=== PATIENT | female | born 1985 | race African-American/Black ===

== ENCOUNTER 2020-11-25 09:37 | Emergency (ER) | payer MEDICAID ==
[~2020-11-25] VITALS: Ht 162.6 cm; Wt 49.9 kg
[~2020-11-25 09:37] MED LIST: PENICILLIN V P500 MG PO
--- NOTE | 2020-11-25 09:45 | NUR ---
ED Nurse Note: pt. is not present during triage
--- NOTE | 2020-11-25 10:08 | NUR ---
ED Nurse Note: unable to do VA test on the patient because patient's eye is hypersensitive to light. pt. can barely open her eyes
--- NOTE | 2020-11-25 10:15 | NUR ---
ED Nurse Note: Pt ambulated to ED from home d/t bilateral eye swelling, irritation and watery eyes and blurry vision that has been going on for week now. Pt is AOx4, calm and cooperative to care, VSS, on RA, afebrile on triage. Pt was placed on bed.
[2020-11-25 10:17] VITALS: BP 124/74
[2020-11-25] MEDS ORDERED: OCUFLOX5 ML BOTH EYES (10:21)
[2020-11-25] MEDS ORDERED: HYDROCODON-ACE1 EA15 ORAL (10:21)
[2020-11-25] MEDS: HYDROcodone/Acetamin 5/325 tab ORAL ONE (10:28)
[2020-11-25 10:29] VITALS: BP 124/74
--- NOTE | 2020-11-25 10:30 | NUR ---
ED Nurse Note: Pt cleared by ERMD for discharge. DC instructions/prescription was given and explained to pt and verbalized understanding of teachings. All medical deviecs such as ID band removed. Pt is AAO x4, ambulatory and left with all personal belongings.
--- NOTE | 2020-11-25 12:29 | Emergency Room Report ---
History of Present Illness General Chief Complaint: Eye Problems Source: Patient Present Illness HPI 35-year-old female presents for evaluation. Complaining of bilateral eye pain x5 days. Notes crusting and discharge. Describes light sensitivity. Denies fevers or chills. Denies cough. No other aggravating relieving factors. Denies any other associated symptoms Allergies: Coded Allergies: No Known Allergies (Unverified , 03/16/16) COVID-19 Screening Contact w/high risk pt: No Experienced COVID-19 symptoms?: No COVID-19 Testing performed CARD DOFFER: No Patient History Past Medical History: other Past Surgical History: other - abd surgery Pertinent Family History: none Social History: Denies: smoking, alcohol use, drug use Now: No Immunizations: UTD Reviewed Nursing Documentation: PMH: Agreed; PSxH: Agreed Nursing Documentation-PMH Hx Gastrointestinal Problems: Yes - abd surgery Review of Systems All Other Systems: negative except mentioned in HPI Physical Exam Vital Signs Date Time Temp Pulse Resp B/P (MAP) Pulse Ox O2 Delivery O2 Flow Rate FiO2 11/25/20 10:02 98.2 88 18 124/74 (91) 97 Room Air Sp02 EP Interpretation: reviewed, normal General Appearance: no apparent distress, alert, GCS 15, non-toxic Head: normocephalic, atraumatic Eyes: bilateral eye PERRL, bilateral eye Scleral Injection, bilateral eye other - crusting bilateral eyes ENT: hearing grossly normal, normal pharynx, no angioedema, normal voice Neck: full range of motion, supple/symm/no masses Respiratory: chest non-tender, lungs clear, normal breath sounds, speaking full sentences Cardiovascular #1: regular rate, rhythm, no edema Cardiovascular #2: 2+ carotid (R), 2+ carotid (L), 2+ radial (R), 2+ radial (L), 2+ dorsalis pedis (R), 2+ dorsalis pedis (L) Gastrointestinal: normal bowel sounds, non tender, soft, non-distended, no guarding, no rebound Rectal: deferred Genitourinary: normal inspection, no CVA tenderness Musculoskeletal: back normal, normal range of motion, gait/station normal, non- tender Neurologic: alert, motor strength/tone normal, oriented x3, sensory intact, responsive, speech normal Psychiatric: judgement/insight normal, memory normal, mood/affect normal, no suicidal/homicidal ideation Reflexes: 3+ bicep (R), 3+ bicep (L), 3+ tricep (R), 3+ tricep (L), 3+ knee (R), 3+ knee (L) Lymphatic: no adenopathy Medical Decision Making Diagnostic Impression: Primary Impression: Conjunctivitis Qualified Codes: H10.9 - Unspecified conjunctivitis ER Course Hospital Course 35-year-old female presents with bilateral eye redness and discharge Differential diagnoses include: conjunctivitis, traumatic iritis, foreign body, corneal abrasion Clinical course Patient placed on stretcher. After initial history, physical exam revealed a female no acute distress. There is injection to bilateral eyes. Crusting noted. Discussed findings with patient. Given pain meds in ED. Will discharge home with antibiotics. I will provide Ortho referral Diagnosis - conjunctivitis Stable and discharged to home with prescription for Ocuflox, [place]. Followup with PMD/Optho. Return to ED if symptoms recur or worsen Last Vital Signs Date Time Temp Pulse Resp B/P (MAP) Pulse Ox O2 Delivery O2 Flow Rate FiO2 11/25/20 10:29 98.2 79 18 124/74 97 Room Air Status: improved Disposition: HOME, SELF-CARE Condition: Stable Scripts Ofloxacin (OCUFLOX) 5 Ml Drops 1 DROP BOTH EYES QID for 7 Days, ML Prov: Rashard Ta MD 11/25/20 Hydrocodone/Acetaminophen 5-325* (HYDROCODONE/ACETAMINOPHEN 5-325*) 1 Each Tablet 1 TAB ORAL Q6H PRN for For Pain, #10 TAB 0 Refills Prov: Rashard Ta MD 11/25/20 Referrals: Abdirahman Posada MD, Maziar M.D. MD Patient Instructions: Bacterial Conjunctivitis, [id number] Rashard Ta MD Nov 25, 2020 12:29
== END 2020-11-25 10:30 | disposition home or self-care (01) ==
LOC: EMR 10:25
DX: H10.9 Unspecified conjunctivitis (principal)
CPT/HCPCS: 99282

== ENCOUNTER 2020-11-28 14:53 | Emergency (ER) | payer MEDICAID ==
[~2020-11-28] VITALS: Ht 165.1 cm; Wt 49.9 kg
[~2020-11-28 14:53] MED LIST changes: +HYDROCODON-ACE1 EA15 ORAL; +OCUFLOX5 ML BOTH EYES
--- NOTE | 2020-11-28 15:10 | NUR ---
not in waiting room
[2020-11-28 15:31] VITALS: BP 101/69
--- NOTE | 2020-11-28 15:33 | NUR ---
Nurse Note: Pt walked in c/o painful urination, white discharge for 4 days. Pt stated her partner tested postitve for chlamydia and gonorrhea and wants to be checked out. Urine sample provided.
[2020-11-28] MEDS ORDERED: Lidocaine 1% MPF 10mg/ml 5ml INJ ONE (15:45)
[2020-11-28] MEDS ORDERED: cefTRIAXone 500mg Inj IM ONE (15:45)
--- NOTE | 2020-11-28 15:50 | Emergency Room Report ---
History of Present Illness General Chief Complaint: Female Urogenital Problems Present Illness HPI 35-year-old female with no significant past medical history reports to the [facility] department requesting treatment for STD. Patient reports that she was notified by her partner that he tested positive for chlamydia, gonorrhea and trichomonas and is requesting treatment for this. Patient reports for 1 week she has been having vaginal dc and had testing done. Patient reports she just received the news of the positive test today. Patient denies fevers or chills, Abdominal pain or tenderness, nausea, vomiting, swollen tender lymph nodes or joint pain. Patient denies penile discharge. Denies external vaginal lesions or rashes. She denies or suspicion for . No other aggravating or relieving factors. Allergies: Coded Allergies: No Known Allergies (Unverified , 03/16/16) COVID-19 Screening Contact w/high risk pt: No Experienced COVID-19 symptoms?: No COVID-19 Testing performed PAROLE OFFICER: No Patient History Past Medical History: see triage record Past Surgical History: none Pertinent Family History: none Last Menstrual Period: 11/2020 Now: No Reviewed Nursing Documentation: PMH: Agreed; PSxH: Agreed Nursing Documentation-PMH Hx Gastrointestinal Problems: Yes - abd surgery Review of Systems All Other Systems: negative except mentioned in HPI Physical Exam Vital Signs Date Time Temp Pulse Resp B/P (MAP) Pulse Ox O2 Delivery O2 Flow Rate FiO2 11/28/20 15:19 98.4 94 16 101/69 (80) 98 Room Air Sp02 EP Interpretation: reviewed, normal General Appearance: no apparent distress, alert, GCS 15, non-toxic Head: normocephalic, atraumatic Eyes: bilateral eye normal inspection, bilateral eye PERRL ENT: hearing grossly normal, normal voice Neck: full range of motion Respiratory: lungs clear, normal breath sounds, speaking full sentences Cardiovascular #1: regular rate, rhythm Gastrointestinal: normal bowel sounds, non tender, soft, non-distended, no guarding Rectal: deferred Genitourinary: normal inspection, no CVA tenderness, deferred - pelvic and wet mount deferred by pt. Musculoskeletal: back normal, normal range of motion, gait/station normal, non- tender Neurologic: alert, motor strength/tone normal, oriented x3, sensory intact, responsive, speech normal Psychiatric: judgement/insight normal Skin: no rash, normal color Lymphatic: no adenopathy Medical Decision Making PA Attestation Dr. Reyes Is my supervising Physician whom patient management has been d iscussed with. Diagnostic Impression: Primary Impression: Contact with or exposure to venereal diseases ER Course 35-year-old female with no significant past medical history reports to the emergency department requesting treatment for STD. Patient reports that she was notified by her partner that he tested positive for chlamydia, gonorrhea and trichomonas and is requesting treatment for this. Patient reports for 1 week she has been having vaginal dc and had testing done. Patient reports she just received the news of the positive test today. Patient denies fevers or chills, Abdominal pain or tenderness, nausea, vomiting, swollen tender lymph nodes or joint pain. Patient denies penile discharge. Denies external vaginal lesions or rashes. She denies or suspicion for . No other aggravating or relieving factors. Ddx considered but are not limited to UTi , STI, G & C, trichomonas, Vaginitis, cervicitis, bartholins gland cyst or cellulitis. Vital signs: are WNL, pt. is afebrile H&PE are most consistent with vaginitis ORDERS: - None at this time -- Pt. treated clinically ED INTERVENTIONS: -500mg Rocephin IM DISCHARGE: At this time pt. is stable for d/c to home. Will provide printed patient care instructions, and any necessary prescriptions. Care plan and follow up instructions have been discussed with the patient prior to discharge. Last Vital Signs Date Time Temp Pulse Resp B/P (MAP) Pulse Ox O2 Delivery O2 Flow Rate FiO2 11/28/20 15:31 98.4 70 16 101/69 98 Room Air Disposition: HOME, SELF-CARE Condition: Stable Scripts Metronidazole* (FLAGYL*) 500 Mg Tablet 500 MG ORAL BID for 7 Days, #14 TAB Prov: Melissa Valero 11/28/20 Doxycycline Hyclate* (VIBRAMYCIN*) 100 Mg Capsule 100 MG ORAL EVERY 12 HOURS for 7 Days, #14 CAP 0 Refills Prov: Melissa Valero 11/28/20 Ref[facility]: [facility],REFERRING (PCP) Patient Instructions: Sexually Transmitted Disease, [id number] Additional Instructions: Take medications as directed. Follow up with a Primary Care Provider in 3-5 days, even if your symptoms have resolved. Return sooner to ED if new symptoms occur, or current symptoms become worse. - Please note that this Emergency Department Report was dictated using [employer] technology software, occasionally this can lead to erroneous entry secondary to interpretation by the dictation equipment. Melissa Valero Nov 28, 2020 15:50
[2020-11-28] MEDS ORDERED: VIBRAMYCIN100 MG ORAL (15:52)
[2020-11-28] MEDS ORDERED: METRONIDAZOLE500 MG ORAL (15:52)
[2020-11-28 16:07] VITALS: BP 101/69
--- NOTE | 2020-11-28 16:07 | NUR ---
ED Nurse Note: Pt cleared by health care Provider for discharge. DC instructions/prescription was given and explained to pt and verbalized understanding of teachings. Instructed pt to follow up with PCP within one week. All medical deviecs such as ID band removed. Pt is AAO x4, ambulatory and left with all personal belongings.
== END 2020-11-28 16:07 | disposition home or self-care (01) ==
LOC: EMR 15:28
DX: N89.8 Other specified noninflammatory disorders of vagina (principal); Z20.2 Contact with and (suspected) exposure to infections with a predominantly sexual mode of transmission
CPT/HCPCS: 96372; J0696; Z7502; 99283